=== PATIENT | male | born 1960 ===

== ENCOUNTER 2016-12-29 02:07 | Emergency (ER) | payer BC, MEDICAID ==
[2016-12-29] MEDS ORDERED: Sodium Chloride 0.9% 1,000 ML IV STA (03:13)
--- NOTE | 2016-12-29 03:16 | ED PDOC ---
Lower Extremity Pain/Injury Time Seen by Provider: 12/29/16 02:35 Chief Complaint (Nursing): Lower Extremity Problem/Injury Chief Complaint (Provider): left great toe eval History Per: Patient History/Exam Limitations: no limitations Onset/Duration Of Symptoms: Days (3) Current Symptoms Are (Timing): Still Present Additional History Per: Patient Additional Complaint(s): 56 y/o male history of diabetes (noncompliant with insulin) presents with discoloration to tip of left great toe x 3 days. Denies fever, nausea/vomiting , known trauma to foot, numbness/weakness left lower extremity, limitation of movement. Past Medical History Reviewed: Historical Data, Nursing Documentation, Vital Signs - Medical History PMH: Diabetes Denies: Chronic Kidney Disease - Family History Family History: States: Diabetes - Home Medications Home Medications: Ambulatory Orders Medication Instructions Recorded Amoxicillin/Clavulanate [Augmentin 1 tab PO BID #20 tab 11/24/15 875 MG-125 MG] Clindamycin [Cleocin] 300 mg PO QID #40 cap 01/28/16 Naproxen 500 mg PO BID PRN #20 tab 01/28/16 - Allergies Allergies/Adverse Reactions: Allergies Allergy/AdvReac Type Severity Reaction Status Date / Time No Known Allergies Allergy Verified 11/24/15 06:27 Review of Systems ROS Statement: Except As Marked, All Systems Reviewed And Found Negative Skin: Positive for: Other (discoloration left great toe) Physical Exam - Reviewed Nursing Documentation Reviewed: Yes Vital Signs Reviewed: Yes - Physical Exam Appears: Positive for: Well, Non-toxic, No Acute Distress Cardiovascular/Chest: Positive for: Regular Rate, Rhythm Respiratory: Positive for: Normal Breath Sounds Pulses-Dorsalis Pedis (L): 2+ Pulses-Dorsalis Pedis (R): 2+ Pulses-Post. Tibialis (L): 2+ Pulses-Post. Tibialis (R): 2+ Extremity: Positive for: Normal ROM, Other (blackened discoloration noted distal left great toe, exending to plantar surface. Nontender. FROM. Brittle/ fungal nails) Neurologic/Psych: Positive for: Alert, Oriented. Negative for: Motor/Sensory Deficits - Laboratory Results Result Diagrams: 12/29/16 03:42 12/29/16 03:42 - Other Rad xray left foot X-Ray: Viewed By Me X-Ray Interpretation: no acute findings - Progress ED Course And Treament: xray, labs, IV fluids, podiatry consult Patient evaluated by POdiatry resident on-call; foot cleaned, bandaged. Advised follow up in clinic. Return to ED for worsening/concerning symptoms. Disposition - Clinical Impression Clinical Impression: Toe contusion, Hyperglycemia - Patient ED Disposition Is Patient to be Admitted: No - Disposition Referrals: Davon Jose MD [Primary Care Provider] - Podiatry Clinic [Outside] [facility] [Outside] Disposition: Routine/Home Disposition Time: 05:58 Condition: GOOD Instructions: Contusion in Adults (ED), Diabetic Hyperglycemia (ED) Print Language: AMHARIC
[2016-12-29 03:47] LABS: BASO % 0.7 % (0.0-2.0); EOS # 0.1 K/uL (0.0-0.7); HEMOGLOBIN 13.7 g/dL (12.0-18.0); LYMPH # 1.9 K/uL (1.0-4.3); LYMPH % 40.2 % (20.0-40.0); MEAN CELL VOLUME 92.5 fl (80.0-94.0); MEAN CORPUSCULAR HGB CONC 33.5 g/dL (33.0-37.0); MEAN PLATELET VOLUME 8.8 fl (7.2-11.7); MONO # 0.5 K/uL (0.0-0.8); MONO % 10.3 % (0.0-10.0); NEUT # 2.1 K/uL (1.8-7.0); NEUT % 45.8 % (50.0-75.0); NRBC % 0.2 % (0.0-0.0); RBC 4.43 Mil/uL (4.40-5.90); RED CELL DISTRIBUTION WIDTH 12.6 % (11.5-14.5); WHITE BLOOD COUNT 4.6 K/uL (4.8-10.8)
[2016-12-29 03:54] LABS: ALB/GLOB RATIO 1.3 (1.0-2.1); ALBUMIN 3.8 g/dL (3.5-5.0); ALT/SGPT 45 U/L (21-72); AST/SGOT 18 U/L (17-59); BLOOD UREA NITROGEN 15 mg/dl (9-20); CALCIUM 8.6 mg/dL (8.4-10.2); GFR AFRICAN-AMERICAN > 60; GFR NON-AFRICAN AMERICAN > 60
[2016-12-29 06:29] VITALS: BP 106/58; PULSE 79; RESP 118; TEMP 98; O2SAT 99
--- NOTE | 2016-12-29 11:10 | CP.PCM.CON ---
History of Present Illness - History of Present Illness History of Present Illness: Patient is a 56 y.o male with h/o of DM presents to the ED for left distal hallux discoloration. Patient states he has noticed the discolored toe for the last few days. The color has not gotten better. He understands having diabetes and foot issues are dangerous so he came here today for an examination. He reports no pain but states his toe feels stiff. He does not recall any trauma. He also states that he has been feeling depressed lately because of being unemployed so he may have a trama to the foot and not recall. He states he has problems recalling information. He denies n/v/sob/cp/chills or fever. PMH: DM Allergies: crabs (itch) SH: past smoker 3 pack/week for 10 years Review of Systems - Constitutional Constitutional: As Per HPI - Integumentary Integumentary: As Per HPI Past Patient History - Infectious Disease Hx of Infectious Diseases: None - Past Social History Smoking Status: Former Smoker - CARDIAC Hx Cardiac Disorders: No - PULMONARY Hx Respiratory Disorders: No - NEUROLOGICAL Hx Neurological Disorder: No - HEENT Hx HEENT Problems: Yes Hx Cataracts: Yes - RENAL Hx Chronic Kidney Disease: No - ENDOCRINE/METABOLIC Hx Endocrine Disorders: Yes Hx Diabetes Mellitus Type 2: Yes - HEMATOLOGICAL/ONCOLOGICAL Hx Blood Disorders: No - INTEGUMENTARY Hx Dermatological Problems: No - MUSCULOSKELETAL/RHEUMATOLOGICAL Hx Musculoskeletal Disorders: No - GASTROINTESTINAL Hx Gastrointestinal Disorders: No - GENITOURINARY/GYNECOLOGICAL Hx Genitourinary Disorders: No - PSYCHIATRIC Hx Psychophysiologic Disorder: No Hx Substance Use: No - SURGICAL HISTORY Hx Surgeries: Yes Hx Cataract Extraction: Yes Hx Herniorrhaphy: Yes Other/Comment: Brain surgery - ANESTHESIA Hx Anesthesia: Yes Hx Anesthesia Reactions: No Meds Allergies/Adverse Reactions: Allergies Allergy/AdvReac Type Severity Reaction Status Date / Time No Known Allergies Allergy Verified 11/24/15 06:27 Physical Exam - Constitutional Appears: Well, Non-toxic, No Acute Distress - Extremities Exam Additional comments: Vasc: DP and PT 2/4 bilaterally, temperature gradient WNL, [employer] <3 seconds to digits x10, no edema noted Ortho: MM is 5/5 in all four compartments bilaterally, no pain elicited upon palpation of the distal left hallux Neuro: gross sensation diminished bilaterally Derm: Left foot distal hallux with old dried hemorrhagic blister with overlying hyperkeratotic skin. No open lesions noted, no signs of infection, no erythema or fluctance noted - Neurological Exam Neurological exam: Alert, Oriented x3 - Psychiatric Exam Psychiatric exam: Normal Affect, Normal Mood Results - Vital Signs Recent Vital Signs: Last Vital Signs Temp 98 F 12/29/16 06:28 Pulse 79 12/29/16 06:28 Resp 118 H 12/29/16 06:28 BP 106/58 L 12/29/16 06:28 Pulse Ox 99 12/29/16 06:28 - Labs Result Diagrams: 12/29/16 03:42 12/29/16 03:42 Labs: Laboratory Results - last 24 hr 12/29/16 12/29/16 12/29/16 03:42 03:42 03:42 WBC 4.6 L RBC 4.43 Hgb 13.7 Hct 41.0 MCV 92.5 MCH 31.0 MCHC 33.5 RDW 12.6 Plt Count 165 MPV 8.8 Neut % (Auto) 45.8 L Lymph % (Auto) 40.2 H Russell % (Auto) 10.3 H Eos % (Auto) 3.0 Baso % (Auto) 0.7 Neut # 2.1 Lymph # 1.9 Russell # 0.5 Eos # 0.1 Baso # 0.0 Sodium 136 Potassium 3.9 Chloride 106 Carbon Dioxide 20 L Anion Gap 14 BUN 15 Creatinine 0.7 L Est GFR ( Amer) > 60 Est GFR (Non-Af Amer) > 60 Random Glucose 316 H Lactic Acid 1.1 Calcium 8.6 Total Bilirubin 1.0 AST 18 ALT 45 Alkaline Phosphatase 77 Total Protein 6.7 Albumin 3.8 Globulin 2.9 Albumin/Globulin Ratio 1.3 Assessment & Plan - Assessment and Plan (Free Text) Assessment: 56 y.o male presents to ED with left distal hallux hyperkeratotic hemorrhagic abrasion Plan: Patient was examined and evaluated Plan discussed with attending Dr. Rinku Green and chart reviewed X-ray reviewed with no soft tissue emphysma noted or fracture noted Left distal hallux cleansed with betadine and dressed with 4x4 and cling Will f/u in podiatry clinic in 1 week Thank you for the consult
--- NOTE | 2016-12-29 14:14 | RAD ---
PROCEDURE: Radiographs of the left great toe. TECHNIQUE:: AP radiograph of the left foot, with oblique and lateral view of the left great toe. COMPARISON: None. FINDINGS: BONES: Normal. No fracture. JOINTS: Normal. SOFT TISSUES: Normal. OTHER FINDINGS: None. IMPRESSION: No acute findings related to/accounting for the clinical presentation. No preliminary report provided by emergency department personnel.
== END 2016-12-29 06:41 | disposition home or self-care (01) ==
LOC: H.ER 02:07
DX: L85.1 Acquired keratosis [keratoderma] palmaris et plantaris (principal); E11.65 Type 2 diabetes mellitus with hyperglycemia; Z91.19 Patient's noncompliance with other medical treatment and regimen

== ENCOUNTER 2017-06-14 17:45 | Emergency (ER) | payer MEDICAID ==
[2017-06-14] MEDS ORDERED: Sodium Chloride 0.9% 1,000 ML IV STA (18:21)
--- NOTE | 2017-06-14 18:34 | ED PDOC ---
HPI: Abdomen Time Seen by Provider: 06/14/17 18:10 Chief Complaint (Nursing): Male Genitourinary Chief Complaint (Provider): Abdominal Pain History Per: Patient History/Exam Limitations: no limitations Onset/Duration Of Symptoms: Days (x 6) Current Symptoms Are (Timing): Still Present Associated Symptoms: Back Pain, Urinary Symptoms Additional Complaint(s): 56 year old male presents to the emergency department complaining of abdominal pain, ongoing for 6 days and worsening since onset. Initially pain was associated with watery non-bloody diarrhea, which resolved 2 days ago. Now hes having dysuria and urinary frequency with dark-colored urine. Patient reports fever, chills, and bilateral low back pain. He has a decreased appetite but no nausea or vomiting. Patient came today because it was the soonest he could get off work. He has taken ibuprofen, Tylenol, and a dose of penicillin he found at home with no relief. No known sick contacts or recent travel. No recent antibiotics prior to onset of symptoms. PMD: Dr. Davon Jose Past Medical History Reviewed: Historical Data, Nursing Documentation, Vital Signs Vital Signs: Last Vital Signs Temp 98.6 F 06/14/17 18:02 Pulse 84 06/14/17 20:36 Resp 14 06/14/17 20:36 BP 147/82 06/14/17 20:36 Pulse Ox 98 06/14/17 20:36 - Medical History PMH: Diabetes Denies: Chronic Kidney Disease - Surgical History Other surgeries: Left testicular mass removal, carotid endovascular surgery, cataract surgery - Family History Family History: States: Diabetes - Social History Ex-Smoker (has not smoked in the last 12 months): Yes (cigars occasionally) Alcohol: None Drugs: Denies - Home Medications Home Medications: Ambulatory Orders Medication Instructions Recorded Amoxicillin/Clavulanate [Augmentin 1 tab PO BID #20 tab 11/24/15 875 MG-125 MG] Clindamycin [Cleocin] 300 mg PO QID #40 cap 01/28/16 Naproxen 500 mg PO BID PRN #20 tab 01/28/16 Ciprofloxacin [Cipro] 1 tab PO BID #14 tab 06/14/17 - Allergies Allergies/Adverse Reactions: Allergies Allergy/AdvReac Type Severity Reaction Status Date / Time No Known Allergies Allergy Verified 06/14/17 18:02 Review of Systems ROS Statement: Except As Marked, All Systems Reviewed And Found Negative (As per HPI, otherwise negative) Constitutional: Positive for: Fever, Chills Gastrointestinal: Positive for: Abdominal Pain. Negative for: Nausea, Vomiting , Diarrhea (resolved 2 days ago) Genitourinary Male: Positive for: Dysuria, Frequency, Other (dark urine) Musculoskeletal: Positive for: Back Pain (b/l lower) Physical Exam - Reviewed Nursing Documentation Reviewed: Yes Vital Signs Reviewed: Yes - Physical Exam Appears: Positive for: Non-toxic, No Acute Distress (but tired appearing) Head Exam: Positive for: ATRAUMATIC, NORMOCEPHALIC Skin: Positive for: Warm, Dry Eye Exam: Positive for: EOMI, PERRL ENT: Positive for: Pharynx Is (clear with tacky mucus membranes) Neck: Positive for: Supple, Trachea Midline Cardiovascular/Chest: Positive for: Regular Rate, Rhythm. Negative for: Murmur Respiratory: Positive for: Normal Breath Sounds. Negative for: Respiratory Distress Gastrointestinal/Abdominal: Positive for: Bowel Sounds, Soft, Tenderness ( suprapubic and LLQ). Negative for: Mass, Distended, Guarding, Rebound Back: Positive for: Other (mild bilateral lumbar paraspinal ttp). Negative for : L CVA Tenderness, R CVA Tenderness, Vertebral Tenderness Extremity: Positive for: Normal ROM. Negative for: Deformity Lymphatic: Negative for: Adenopathy Neurologic/Psych: Positive for: Alert. Negative for: Motor/Sensory Deficits - Laboratory Results Result Diagrams: 06/14/17 18:56 06/14/17 18:56 Urine dip results: Positive for: Leukocyte Esterase, Blood, Nitrate, Ketones, Glucose - ECG O2 Sat by Pulse Oximetry: 99 (RA) Pulse Ox Interpretation: Normal Medical Decision Making Medical Decision Making: Initial Impression: Abdominal pain, Urinary symptoms Differential includes but is not limited to: UTI, cystitis, pyelonephritis, gastroenteritis, dehydration Time: 18:20 Initial Plan: * Labs * Urine dipstick * Blood and urine cultures * Urinalysis * Accucheck * IV fluids * Reevaluation Accession No. : [id number] Patient Name / ID : CHRISTINE CASTREJON / [id number] Exam Date : 06/14/2017 19:38:45 ( Approved ) Study Comment : Sex / Age : M / 56Y Creator : KORSVIK-ANGE, DANIELA Dictator : Paint Tinter : It Applications Manager : DANIELA ESPINAL Approver2 : Report Date : 06/14/2017 20:12:00 My Comment : [facility] Division of Radiology [address] [address] Tel. no. Patient Name: LUCÍA KING Pt. Address: [address] [place] [address]. Rec #: [id number] [place] [address]: Yong REECE, Liliane Bashir Pt CELL Order Location: [facility] : 1960 Male Age: 56 Order #: [id number] Reason for exam: flank pain and UTi symptoms CT Scan ABD PELVIS W/O PO OR IV CONT Exam Date: 06/14/17 This imaging exam was performed at [facility] EXAM: CT Abdomen and Pelvis Without Intravenous Contrast EXAM DATE/TIME: 06/14/2017 7:30 PM CLINICAL HISTORY: 56 years old, male; Pain; Abdominal pain; Generalized; Additional info: Flank pain and uti symptoms TECHNIQUE: Axial computed tomography images of the abdomen and pelvis without intravenous contrast. All CT scans at this facility use one or more dose reduction techniques, viz.: automated exposure control; ma/kV adjustment per patient size (including targeted exams where dose is matched to indication; i.e. head); or iterative reconstruction technique. Coronal and sagittal reformatted images were created and reviewed. COMPARISON: There are no prior studies for comparison. FINDINGS: Lower thorax: Heart size is normal. There is a small hilar hernia. There is dependent atelectasis. ABDOMEN: Liver: unremarkable Gallbladder and bile ducts: unremarkable Pancreas: unremarkable Spleen: Spleen is mildly enlarged. Adrenals: unremarkable Kidneys and ureters: There is mild left perinephric stranding. There are no renal or ureteral stones.There is no pelvocaliectasis or ureterectasis. Stomach and bowel: Stomach is partially distended with ingested material. Rotation is normal. Proximal small bowel is mildly distended. Distention decreases distally. There is no obstruction. Ileocecal region is unremarkable. Appendix and terminal ileum are unremarkable. There is moderate stool in the colon. Appendix: See stomach and bowel PELVIS: Bladder: Bladder is distended. Reproductive: Prostate is mildly enlarged. Seminal vesicles are unremarkable. ABDOMEN and PELVIS: Intraperitoneal space: There is no free air or free fluid. Bones/joints: There are degenerative changes in the osseus structures. Soft tissues: There is a small fat containing umbilical hernia. 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 There is minimal vascular calcification in the aorta. Lymph nodes: There is no pathologic adenopathy. IMPRESSION: No renal or ureteral stones or hydronephrosis; mild splenomegaly Additional findings as described above. Dictated By: Daniela Espinal MD, MD Dictated Date/Time: 06/14/172011 Signed By: Daniela Espinal MD Date Signed: 2011 Transcribed By: SHAWNA Transcribe Date/Time : 06/14/172011 RANDY/[facility]CO [facility] pt findings and plan of care. Dose of Cipro in ER and stable for dc with urgent follow up. Scribe Attestation: Documented by Jazlyn Gillis, acting as a scribe for Liliane Beach MD Provider Scribe Attestation: All medical record entries made by the Scribe were at my direction and personally dictated by me. I have reviewed the chart and agree that the record accurately reflects my personal performance of the history, physical exam, medical decision making, and the department course for this patient. I have also personally directed, reviewed, and agree with the discharge instructions and disposition. Disposition - Clinical Impression Clinical Impression: Cystitis, Hyperglycemia Counseled Patient/Family Regarding: Studies Performed, Diagnosis, Need For Followup, Rx Given - Disposition Referrals: Davon Jose MD [Family Provider] - 06/15/17 (FOLLOW UP WITH DR JOSE TOMORROW ) Disposition: Routine/Home Disposition Time: 21:00 Condition: IMPROVED Prescriptions: Ciprofloxacin [Cipro] 1 tab PO BID #14 tab Instructions: Urinary Tract Infection in Men (ED), Diabetic Hyperglycemia (ED) Forms: [facility] School/Work Excuse Print Language: JAPANESE
[2017-06-14 19:09] LABS: BASO % 0.4 % (0.0-2.0); EOS # 0.1 K/uL (0.0-0.7); EOS % 1.4 % (0.0-4.0); HEMOGLOBIN 12.5 g/dL (12.0-18.0); LYMPH # 1.3 K/uL (1.0-4.3); LYMPH % 16.1 % (20.0-40.0); MEAN CELL VOLUME 91.7 fl (80.0-94.0); MEAN CORPUSCULAR HEMOGLOBIN 31.4 pg (27.0-31.0); MEAN CORPUSCULAR HGB CONC 34.3 g/dL (33.0-37.0); MEAN PLATELET VOLUME 8.3 fl (7.2-11.7); MONO # 0.7 K/uL (0.0-0.8); MONO % 8.4 % (0.0-10.0); NEUT # 6.1 K/uL (1.8-7.0); NEUT % 73.7 % (50.0-75.0); NRBC % 0.1 % (0.0-0.0); RBC 3.98 Mil/uL (4.40-5.90); RED CELL DISTRIBUTION WIDTH 12.3 % (11.5-14.5); WHITE BLOOD COUNT 8.2 K/uL (4.8-10.8)
[2017-06-14 19:10] LABS: VENOUS BLOOD GAS BASE EXCESS -1.1 mmol/L (0.0-2.0); VENOUS BLOOD GAS PCO2 38 mmHg (40-60); VENOUS BLOOD GAS PO2 50 mm/Hg (30-55)
[2017-06-14 19:13] LABS: SQUAMOUS EPITHIAL < 1 /hpf (0-5); URINE BILIRUBIN NEGATIVE (NEGATIVE); URINE BLOOD MODERATE (NEGATIVE); URINE CLARITY SLIGHTY-CLOUDY (Clear); URINE COLOR YELLOW (YELLOW); URINE GLUCOSE (UA) >=500 mg/dL (Normal); URINE LEUKOCYTE ESTERASE SMALL Leu/uL (Negative); URINE NITRATE NEGATIVE (NEGATIVE); URINE PROTEIN NEGATIVE (NEGATIVE)
[2017-06-14 19:29] LABS: ALB/GLOB RATIO 1.1 (1.0-2.1); ALBUMIN 3.6 g/dL (3.5-5.0); ALT/SGPT 50 U/L (21-72); AST/SGOT 23 U/L (17-59); BLOOD UREA NITROGEN 16 mg/dl (9-20); CALCIUM 8.7 mg/dL (8.4-10.2); GFR AFRICAN-AMERICAN > 60; GFR NON-AFRICAN AMERICAN > 60; LIPASE 59 U/L (23-300); MAGNESIUM 2.1 MG/DL (1.6-2.3)
[2017-06-14] MEDS ORDERED: Ciprofloxacin 400mg/200ml D5W 400 MG/200 ML BAG IV STA (19:30)
--- NOTE | 2017-06-14 20:12 | CT ---
EXAM: CT Abdomen and Pelvis Without Intravenous Contrast EXAM DATE/TIME: 06/14/2017 7:30 PM CLINICAL HISTORY: 56 years old, male; Pain; Abdominal pain; Generalized; Additional info: Flank pain and uti symptoms TECHNIQUE: Axial computed tomography images of the abdomen and pelvis without intravenous contrast. All CT scans at this facility use one or more dose reduction techniques, viz.: automated exposure control; ma/kV adjustment per patient size (including targeted exams where dose is matched to indication; i.e. head); or iterative reconstruction technique. Coronal and sagittal reformatted images were created and reviewed. COMPARISON: There are no prior studies for comparison. FINDINGS: Lower thorax: Heart size is normal. There is a small hilar hernia. There is dependent atelectasis. ABDOMEN: Liver: unremarkable Gallbladder and bile ducts: unremarkable Pancreas: unremarkable Spleen: Spleen is mildly enlarged. Adrenals: unremarkable Kidneys and ureters: There is mild left perinephric stranding. There are no renal or ureteral stones.There is no pelvocaliectasis or ureterectasis. Stomach and bowel: Stomach is partially distended with ingested material. Rotation is normal. Proximal small bowel is mildly distended. Distention decreases distally. There is no obstruction. Ileocecal region is unremarkable. Appendix and terminal ileum are unremarkable. There is moderate stool in the colon. Appendix: See stomach and bowel PELVIS: Bladder: Bladder is distended. Reproductive: Prostate is mildly enlarged. Seminal vesicles are unremarkable. ABDOMEN and PELVIS: Intraperitoneal space: There is no free air or free fluid. Bones/joints: There are degenerative changes in the osseus structures. Soft tissues: There is a small fat containing umbilical hernia. 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 There is minimal vascular calcification in the aorta. Lymph nodes: There is no pathologic adenopathy. IMPRESSION: No renal or ureteral stones or hydronephrosis; mild splenomegaly Additional findings as described above.
[2017-06-14] MEDS ORDERED: Ciprofloxacin 400mg/200ml D5W 400 MG/200 ML BAG IVPB ONE (20:20)
[2017-06-14 20:36] VITALS: PULSE 84; RESP 14
[2017-06-14] MEDS ORDERED: Insulin Regular 100 units/ml SC STA ×2 (20:39→20:43)
[2017-06-14] MEDS ORDERED: Insulin Regular 100 units/ml ONE (20:45)
[2017-06-14 21:24] VITALS: O2SAT 99
[2017-06-14 21:43] VITALS: BP 118/67; TEMP 98.9
== END 2017-06-14 22:31 | disposition home or self-care (01) ==
LOC: H.ER 17:45
DX: N30.90 Cystitis, unspecified without hematuria (principal); E11.65 Type 2 diabetes mellitus with hyperglycemia
CPT/HCPCS: 74176; 80053; 81003; 82803; 82948; 83690; 83735; 84100; 85025; 87040; 87086; 96372; 96374; 99285; J0744; J1885; J7040

== ENCOUNTER 2017-08-29 23:10 | Emergency (ER) | payer MEDICAID ==
[2017-08-29 23:18] VITALS: BP 149/79; PULSE 79; RESP 18; TEMP 97.8; O2SAT 98
[2017-08-30 00:37] LABS: BASO # 0.1 K/uL (0.0-0.2); BASO % 0.9 % (0.0-2.0); EOS # 0.2 K/uL (0.0-0.7); EOS % 3.4 % (0.0-4.0); HEMOGLOBIN 12.8 g/dL (12.0-18.0); LYMPH # 1.7 K/uL (1.0-4.3); LYMPH % 29.5 % (20.0-40.0); MEAN CELL VOLUME 89.5 fl (80.0-94.0); MEAN CORPUSCULAR HEMOGLOBIN 30.6 pg (27.0-31.0); MEAN CORPUSCULAR HGB CONC 34.2 g/dL (33.0-37.0); MEAN PLATELET VOLUME 8.3 fl (7.2-11.7); MONO # 0.5 K/uL (0.0-0.8); MONO % 7.9 % (0.0-10.0); NEUT # 3.4 K/uL (1.8-7.0); NEUT % 58.3 % (50.0-75.0); RBC 4.18 Mil/uL (4.40-5.90); RED CELL DISTRIBUTION WIDTH 12.9 % (11.5-14.5); WHITE BLOOD COUNT 5.8 K/uL (4.8-10.8)
[2017-08-30 00:46] LABS: ALBUMIN 3.6 g/dL (3.5-5.0); ALT/SGPT 29 U/L (21-72); AST/SGOT 18 U/L (17-59); BLOOD UREA NITROGEN 12 mg/dl (9-20); GFR AFRICAN-AMERICAN > 60; GFR NON-AFRICAN AMERICAN > 60
[2017-08-30] MEDS ORDERED: Sodium Chloride 0.9% 1,000 ML IV STA (01:11)
[2017-08-30] MEDS ORDERED: Insulin Regular 100 units/ml IV STA (01:11)
[2017-08-30] MEDS ORDERED: Insulin Regular 100 units/ml ONE (01:19)
--- NOTE | 2017-08-30 01:29 | ED PDOC ---
Lower Extremity Pain/Injury Time Seen by Provider: 08/29/17 23:23 Chief Complaint (Nursing): Lower Extremity Problem/Injury Chief Complaint (Provider): Left foot pain and swelling - No trauma History Per: Patient History/Exam Limitations: no limitations Onset/Duration Of Symptoms: Days (3) Current Symptoms Are (Timing): Still Present Severity: Moderate Additional Complaint(s): 57 yo male with history of DM presents with left foot pain for 3 days. Pt denies trauma but states he has been on his feet a lot at work. No calf pain. No SOB. Recent A1C > 11 Past Medical History Reviewed: Historical Data, Nursing Documentation, Vital Signs Vital Signs: Last Vital Signs Temp 97.8 F 08/29/17 23:12 Pulse 79 08/29/17 23:12 Resp 18 08/29/17 23:12 BP 149/79 08/29/17 23:12 Pulse Ox 98 08/29/17 23:12 - Medical History PMH: Diabetes Denies: Chronic Kidney Disease - Surgical History Surgical History: No Surg Hx - Family History Family History: States: Diabetes - Living Arrangements Living Arrangements: With Family - Social History Current smoker - smoking cessation education provided: No Alcohol: Occasional Drugs: Denies - Home Medications Home Medications: Ambulatory Orders Medication Instructions Recorded Amoxicillin/Clavulanate [Augmentin 1 tab PO BID #20 tab 11/24/15 875 MG-125 MG] Clindamycin [Cleocin] 300 mg PO QID #40 cap 01/28/16 Naproxen 500 mg PO BID PRN #20 tab 01/28/16 Ciprofloxacin [Cipro] 1 tab PO BID #14 tab 06/14/17 Naproxen [Naprosyn] 500 mg PO BID PRN #20 tablet 08/30/17 - Allergies Allergies/Adverse Reactions: Allergies Allergy/AdvReac Type Severity Reaction Status Date / Time No Known Allergies Allergy Verified 06/14/17 18:02 Review of Systems ROS Statement: Except As Marked, All Systems Reviewed And Found Negative Constitutional: Negative for: Fever, Chills Musculoskeletal: Positive for: Foot Pain Physical Exam - Reviewed Nursing Documentation Reviewed: Yes Vital Signs Reviewed: Yes - Physical Exam Appears: Positive for: Well, Non-toxic, No Acute Distress Head Exam: Positive for: ATRAUMATIC, NORMAL INSPECTION, NORMOCEPHALIC Skin: Positive for: Normal Color (No erythema of the feet, no rash, no abrasions ), Warm Eye Exam: Positive for: Normal appearance ENT: Positive for: Normal ENT Inspection Neck: Positive for: Normal, Painless ROM Respiratory: Negative for: Accessory Muscle Use Pulses-Dorsalis Pedis (L): 2+ Pulses-Dorsalis Pedis (R): 2+ Pulses-Post. Tibialis (L): 2+ Pulses-Post. Tibialis (R): 2+ Back: Positive for: Normal Inspection Extremity: Positive for: Normal ROM, Swelling, Other ((+) tenderness of the plantar fascia on the left foot ). Negative for: Calf Tenderness Neurologic/Psych: Positive for: Alert, Oriented - Laboratory Results Result Diagrams: 08/30/17 00:34 08/30/17 00:34 - ECG O2 Sat by Pulse Oximetry: 98 Pulse Ox Interpretation: Normal Disposition - Clinical Impression Clinical Impression: Plantar fasciitis of left foot - Patient ED Disposition Is Patient to be Admitted: No Counseled Patient/Family Regarding: Diagnosis, Need For Followup, Rx Given - Disposition Referrals: Podiatry Clinic [Outside] Disposition: Routine/Home Disposition Time: 02:46 Condition: GOOD Prescriptions: Naproxen [Naprosyn] 500 mg PO BID PRN #20 tablet PRN Reason: Pain Instructions: Plantar Fasciitis Exercises, Heel Pain (Caused by Plantar Fasciitis) (DC) Forms: [facility] (Chilean)
[2017-08-30 01:52] LABS: URINE BACTERIA RARE (<OCC); URINE BILIRUBIN NEGATIVE (NEGATIVE); URINE BLOOD NEGATIVE (NEGATIVE); URINE CLARITY CLEAR (Clear); URINE COLOR STRAW (YELLOW); URINE GLUCOSE (UA) >=500 mg/dL (Normal); URINE LEUKOCYTE ESTERASE NEG Leu/uL (Negative); URINE PROTEIN NEGATIVE (NEGATIVE); URINE UROBILINOGEN 0.2-1.0 mg/dL (0.2-1.0)
--- NOTE | 2017-08-30 08:30 | RAD ---
PROCEDURE: Left Foot Radiographs. HISTORY: Left foot swelling COMPARISON: Left great toe radiographs 12/29/2016. FINDINGS: BONES: Normal fracture or destructive bony lesion appreciated. Note is made of diffuse osteopenia suggesting osteoporosis. JOINTS: Degenerative joint space narrowing and cortical sclerosis appreciated throughout the joints of the forefoot midfoot and hindfoot compatible degenerative joint disease. SOFT TISSUES: Normal. OTHER FINDINGS: None. IMPRESSION: No acute fracture or dislocation. Diffuse osteopenia suggests osteoporosis. Diffuse degenerative joint disease.
== END 2017-08-30 03:07 | disposition home or self-care (01) ==
LOC: H.ER 23:10
DX: M72.2 Plantar fascial fibromatosis (principal); E11.9 Type 2 diabetes mellitus without complications
CPT/HCPCS: 73630; 80053; 81003; 82948; 85025; 85378; 96360; 99284; J7040

== ENCOUNTER 2018-04-27 23:01 | Emergency (ER) | payer BC, MEDICAID ==
[2018-04-27 23:19] VITALS: BP 143/76; PULSE 75; RESP 17; TEMP 98.3; O2SAT 99
--- NOTE | 2018-04-28 00:17 | ED PDOC ---
Lower Extremity Pain/Injury Time Seen by Provider: 04/27/18 23:29 Chief Complaint (Nursing): Lower Extremity Problem/Injury Chief Complaint (Provider): Lower Extremity Problem/Injury History Per: Patient History/Exam Limitations: no limitations Onset/Duration Of Symptoms: Days (x2 weeks) Current Symptoms Are (Timing): Still Present Additional Complaint(s): Lucía Benjamin is a 57 year old male with a past medical history of diabetes, who presents to the emergency department complaining of itching and swelling on his feet bilaterally, onset x2 weeks. Patient states he stands on his feet all the time at work for hours. He further reports that his glucometer is broken and he has not been able to check his blood sugar, however, he states he has been taking his medications, pills and insulin. Patient has seen his PMD for this in the past, who prescribed him a topical cream. 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 Patient states he changed his shoes and that his symptoms got better. He denies shortness of breath, chest pain, or any leg swelling. PMD: Dr. Bhat Past Medical History Reviewed: Historical Data, Nursing Documentation, Vital Signs Vital Signs: Last Vital Signs Temp 98.3 F 04/27/18 23:10 Pulse 75 04/27/18 23:10 Resp 17 04/27/18 23:10 BP 143/76 04/27/18 23:10 Pulse Ox 99 04/27/18 23:10 - Medical History PMH: Diabetes Denies: Chronic Kidney Disease - Surgical History Surgical History: No Surg Hx - Family History Family History: States: Diabetes - Home Medications Home Medications: Ambulatory Orders Medication Instructions Recorded Alogliptin Dale/Metformin HCl 1,000 mg PO DAILY 09/15/17 [Alogliptin-Metformin 12.5-1000] Ergocalciferol (Vitamin D2) 50,000 unit PO ASDIR 09/15/17 [Vitamin D2] Insulin Glargine,Hum.rec.anlog 60 unit SQ DAILY 09/15/17 [Basaglar Kwikpen U-100] - Allergies Allergies/Adverse Reactions: Allergies Allergy/AdvReac Type Severity Reaction Status Date / Time No Known Allergies Allergy Verified 06/14/17 18:02 Review of Systems ROS Statement: Except As Marked, All Systems Reviewed And Found Negative Musculoskeletal: Positive for: Foot Pain (itching and swelling bilaterally) Physical Exam - Reviewed Nursing Documentation Reviewed: Yes Vital Signs Reviewed: Yes - Physical Exam Appears: Positive for: Non-toxic, No Acute Distress (comfortable) Head Exam: Positive for: ATRAUMATIC, NORMOCEPHALIC Extremity: Negative for: Other (wounds, erythema, swelling on legs ) - ECG O2 Sat by Pulse Oximetry: 99 (RA) Pulse Ox Interpretation: Normal Medical Decision Making Medical Decision Making: Initial Time: 23:54 Initial Impression: Foot itching and foot swelling Initial Plan: --Glucose POC --Provider instructed patient to wear compression socks, comfortable shoes, get a new glucometer and be compliant with medications. --Patients accu-check was reported to be 150. Scribe Attestation: Documented by Doug Mata, acting as a scribe for Leesa Juarez MD Provider Scribe Attestation: All medical record entries made by the Scribe were at my direction and personally dictated by me. I have reviewed the chart and agree that the record accurately reflects my personal performance of the history, physical exam, medical decision making, and the department course for this patient. I have also personally directed, reviewed, and agree with the discharge instructions and disposition. Disposition - Clinical Impression Clinical Impression: Neuropathy of both feet Doctor Will See Patient In The: Office Counseled Patient/Family Regarding: Studies Performed, Diagnosis, Need For Followup - Disposition Referrals: Podiatry Clinic [Outside] Disposition: Routine/Home Disposition Time: 00:30 Condition: GOOD Additional Instructions: LUCÍA BENJAMIN, thank you for letting us take care of you today. Your provider was Leesa Juarez MD and you were treated for RT LEG PAIN. The emergency medical care you received today was directed at your acute symptoms. If you were prescribed any medication, please fill it and take as directed. It may take several days for your symptoms to resolve. Return to the Emergency Department if your symptoms worsen, do not improve, or if you have any other problems. Please contact your doctor or call one of the physicians/clinics you have been referred to that are listed on the Patient Visit Information form that is included in your discharge packet. Bring any paperwork you were given at discharge with you along with any medications you are taking to your follow up visit. Our treatment cannot replace ongoing medical care by a primary care provider outside of the emergency department. Thank you for allowing the [facility] team to be part of your care today. If you had an X-Ray or CT scan: A Radiologist will review the ED reading if any change in treatment is needed we will contact you. If you had a blood, urine, or wound culture: It will take several days for the results, if any change in treatment is needed we will contact you. If you had an STI test: It will take 48 hours for the results. Please call after 1 week if you have not heard back. Instructions: Diabetic Neuropathy
== END 2018-04-28 00:36 | disposition home or self-care (01) ==
LOC: H.ER 23:01
DX: G90.09 Other idiopathic peripheral autonomic neuropathy (principal); E11.40 Type 2 diabetes mellitus with diabetic neuropathy, unspecified; Z79.4 Long term (current) use of insulin

== ENCOUNTER 2018-06-22 23:11 | Emergency (ER) | payer BC, MEDICAID ==
[2018-06-22 23:23] VITALS: RESP 16
[2018-06-22] MEDS ORDERED: Sodium Chloride 0.9% 1,000 ML IV STA (23:54)
[2018-06-23 00:06] LABS: BASO # 0.1 K/uL (0.0-0.2); BASO % 0.9 % (0.0-2.0); EOS # 0.2 K/uL (0.0-0.7); EOS % 2.7 % (0.0-4.0); HEMOGLOBIN 13.5 g/dL (12.0-18.0); LYMPH # 1.7 K/uL (1.0-4.3); LYMPH % 24.2 % (20.0-40.0); MEAN CELL VOLUME 90.8 fl (80.0-94.0); MEAN CORPUSCULAR HEMOGLOBIN 31.1 pg (27.0-31.0); MEAN CORPUSCULAR HGB CONC 34.3 g/dL (33.0-37.0); MEAN PLATELET VOLUME 8.1 fl (7.2-11.7); MONO # 0.5 K/uL (0.0-0.8); MONO % 6.9 % (0.0-10.0); NEUT # 4.6 K/uL (1.8-7.0); NEUT % 65.3 % (50.0-75.0); RBC 4.34 Mil/uL (4.40-5.90); RED CELL DISTRIBUTION WIDTH 12.5 % (11.5-14.5)
[2018-06-23 00:11] LABS: ALB/GLOB RATIO 1.1 (1.0-2.1); ALT/SGPT 13 U/L (21-72); AST/SGOT 16 U/L (17-59); BLOOD UREA NITROGEN 14 mg/dl (9-20); GFR NON-AFRICAN AMERICAN > 60
--- NOTE | 2018-06-23 00:16 | ED PDOC ---
Lower Extremity Pain/Injury Time Seen by Provider: 06/22/18 23:27 Chief Complaint (Nursing): Lower Extremity Problem/Injury Chief Complaint (Provider): Lower Extremity Problem/Injury History Per: Patient History/Exam Limitations: no limitations Additional Complaint(s): 57 y/o male with PMHx of diabetes presents to the ED complaining of right foot pain and swelling onset x3 weeks ago. Patient reports x3 weeks of progressively worsening foot pain extending to his mid right lower extremity. Patient is seeing Dr. Marinelli, project coordinator, and Dr. Jose, PMD. He was given 1 course of antibiotics with no difference in symptoms. He had 1 outpatient x-ray at this facility; he additionally had a Doppler study a week ago and was told the results were normal. Past Medical History Reviewed: Historical Data, Nursing Documentation, Vital Signs Vital Signs: Last Vital Signs Temp 98.4 F 06/22/18 23:20 Pulse 79 06/22/18 23:20 Resp 16 06/22/18 23:20 BP 139/83 06/22/18 23:20 Pulse Ox 98 06/22/18 23:20 - Medical History PMH: Diabetes Denies: Chronic Kidney Disease - Surgical History Surgical History: No Surg Hx - Family History Family History: States: Diabetes - Social History Current smoker - smoking cessation education provided: No Alcohol: None Drugs: Denies - Immunization History Hx Tetanus Toxoid Vaccination: No Hx Influenza Vaccination: No Hx Pneumococcal Vaccination: No - Home Medications Home Medications: Ambulatory Orders Medication Instructions Recorded Cephalexin [Keflex] 500 mg PO Q6 #40 capsule 06/23/18 Insulin Glargine, Recombina 60 units SC DAILY 06/23/18 [Lantus] MetFORMIN [glucoPHAGE] 1,000 mg PO DAILY 06/23/18 - Allergies Allergies/Adverse Reactions: Allergies Allergy/AdvReac Type Severity Reaction Status Date / Time No Known Allergies Allergy Verified 06/22/18 23:20 Review of Systems ROS Statement: Except As Marked, All Systems Reviewed And Found Negative Musculoskeletal: Positive for: Leg Pain (right), Foot Pain (right) Physical Exam - Reviewed Nursing Documentation Reviewed: Yes Vital Signs Reviewed: Yes - Physical Exam Appears: Positive for: Well, Non-toxic, No Acute Distress Head Exam: Positive for: ATRAUMATIC, NORMOCEPHALIC Skin: Positive for: Normal Color, Warm, Dry Eye Exam: Positive for: Normal appearance, EOMI, PERRL Extremity: Positive for: Swelling (right foot extending to distal 1/3 of RLE is edematous), Other (warm to touch; mildly erythematous; no area of fluctuance; minimal induration) Neurologic/Psych: Positive for: Alert, Oriented. Negative for: Motor/Sensory Deficits - Laboratory Results Result Diagrams: 06/22/18 23:45 06/22/18 23:45 - ECG O2 Sat by Pulse Oximetry: 98 (RA) Pulse Ox Interpretation: Normal Medical Decision Making Medical Decision Making: Time: 23:27 Initial Impression: 57 y/o male with right lower extremity swelling in setting of known diabetes Initial Plan: * CMP * Lact Acid * Uric Acid * CBC w/ diff * ESR * Glucose * IV Fluids * Toradol 15 mg * Blood culture 01:05 Patient evaluated by project coordinator and is cleared for discharge. Patient will follow up with Dr. Marinelli. Diagnosis is cellulitis. Scribe Attestation: Documented by Sly Kirkpatrick acting as a scribe for Edy Molina MD. Provider Scribe Attestation: All medical record entries made by the Scribe were at my direction and personally dictated by me. I have reviewed the chart and agree that the record accurately reflects my personal performance of the history, physical exam, medical decision making, and the department course for this patient. I have also personally directed, reviewed, and agree with the discharge instructions and disposition. Disposition - Clinical Impression Clinical Impression: Cellulitis of foot - Patient ED Disposition Is Patient to be Admitted: No - Disposition Disposition: Routine/Home Disposition Time: 01:05 Condition: STABLE Additional Instructions: LUCÍA KING, thank you for letting us take care of you today. Your provider was Edy Molina MD and you were treated for FOOT SWELLING. The emergency medical care you received today was directed at your acute symptoms. If you were prescribed any medication, please fill it and take as directed. It may take several days for your symptoms to resolve. Return to the Emergency Department if your symptoms worsen, do not improve, or if you have any other problems. Please contact your doctor or call one of the physicians/clinics you have been referred to that are listed on the Patient Visit Information form that is includ ed in your discharge packet. Bring any paperwork you were given at discharge with you along with any medications you are taking to your follow up visit. Our treatment cannot replace ongoing medical care by a primary care provider outside of the emergency department. Thank you for allowing the [facility] team to be part of your care today. If you had an X-Ray or CT scan: A Radiologist will review the ED reading if any change in treatment is needed we will contact you. If you had a blood, urine, or wound culture: It will take several days for the results, if any change in treatment is needed we will contact you. If you had an STI test: It will take 48 hours for the results. Please call after 1 week if you have not heard back. Prescriptions: Cephalexin [Keflex] 500 mg PO Q6 #40 capsule Instructions: Cellulitis (Skin Infection), Adult (DC) Forms: [employer] (Swazi) Print Language: ROMANSH
[2018-06-23 00:29] LABS: URIC ACID 3.1 mg/Dl (3.5-8.5)
[2018-06-23] MEDS ORDERED: ceFAZolin 1 GM in Sodium Chloride 0.9% 100 ML IVPB STA (00:51)
[2018-06-23 03:09] VITALS: BP 127/79; PULSE 73; TEMP 98.1; O2SAT 99
--- NOTE | 2018-06-23 07:55 | CP.PCM.CON ---
History of Present Illness - History of Present Illness History of Present Illness: Podiatry consult note for Dr. Marinelli 57M with pmhx of DM seen and evaluated in the ED for right lower leg and foot pain which started 3 weeks ago. States that he visited Dr. Marinelli's office and was told to present to [facility] for x-rays and doppler studies, both of which were negative. States that the pain is not getting better and he notices his right leg is more swollen than his left. States that pain medication does help. Denies N/V/F/C/SOB/CP and has no other acute complaints. PMHx: DM SH: 3 ppw smoker All: NKDA Past Patient History - Infectious Disease Hx of Infectious Diseases: None - Past Medical History & Family History Past Medical History?: Yes - Past Social History Alcohol: None Drugs: Denies - CARDIAC Hx Cardiac Disorders: No Other/Comment: PT STATES HE HAD A CLOGGED ARTERY RIGHT ,HAD AN XRAY PROCEDURE, WENT IN THE RIGHT ARM 10 YEARS AGO, PT DOSE NOT KNOW THE NAME OF PROCEDURE, DEN IES BLOOD THINNERS OR ASA THERAPY. - PULMONARY Hx Respiratory Disorders: No - NEUROLOGICAL Hx Neurological Disorder: No - HEENT Hx HEENT Problems: Yes Hx Cataracts: Yes - RENAL Hx Chronic Kidney Disease: No - ENDOCRINE/METABOLIC Hx Endocrine Disorders: Yes Hx Diabetes Mellitus Type 2: Yes - HEMATOLOGICAL/ONCOLOGICAL Hx Blood Disorders: No - INTEGUMENTARY Hx Dermatological Problems: No - MUSCULOSKELETAL/RHEUMATOLOGICAL Hx Musculoskeletal Disorders: No - GASTROINTESTINAL Hx Gastrointestinal Disorders: No - GENITOURINARY/GYNECOLOGICAL Hx Genitourinary Disorders: No - PSYCHIATRIC Hx Psychophysiologic Disorder: No Hx Substance Use: No - SURGICAL HISTORY Hx Surgeries: Yes Hx Cataract Extraction: Yes - ANESTHESIA Hx Anesthesia: Yes Hx Anesthesia Reactions: No Hx Malignant Hyperthermia: No Meds Home Medications: Home Medication List Medication Instructions Recorded Confirmed Type Cephalexin [Keflex] 500 mg PO Q6 #40 capsule 06/23/18 Rx Allergies/Adverse Reactions: Allergies Allergy/AdvReac Type Severity Reaction Status Date / Time No Known Allergies Allergy Verified 06/22/18 23:20 Physical Exam - Constitutional Appears: Non-toxic, No Acute Distress - Head Exam Head Exam: ATRAUMATIC, NORMOCEPHALIC - Extremities Exam Additional comments: RLE focused: VASC: DP and PT pulses minimally palpable; cap refill <3 seconds to all digits; temp gradient warm to warm from proximal to distal; mild edema noted about the lower leg from the knee down to the distal digits DERM: no open lesions or wounds present; no rash present; mild erythema present globally about the lower leg ORTHO: no pain on palpation or ROM about the lower leg; no other gross pathology noted NEURO: gross and protective sensation intact - Neurological Exam Neurological exam: Alert, Oriented x3 - Psychiatric Exam Psychiatric exam: Normal Affect, Normal Mood Results - Vital Signs Recent Vital Signs: Last Vital Signs Temp 98.1 F 06/23/18 03:00 Pulse 73 06/23/18 03:00 Resp 16 06/23/18 03:00 BP 127/79 06/23/18 03:00 Pulse Ox 99 06/23/18 03:00 - Labs Result Diagrams: 06/22/18 23:45 06/22/18 23:45 Labs: Laboratory Results - last 24 hr 06/22/18 06/22/18 06/22/18 23:38 23:45 23:45 WBC 7.0 RBC 4.34 L Hgb 13.5 Hct 39.4 MCV 90.8 MCH 31.1 H MCHC 34.3 RDW 12.5 Plt Count 262 MPV 8.1 Neut % (Auto) 65.3 Lymph % (Auto) 24.2 Garfield % (Auto) 6.9 Eos % (Auto) 2.7 Baso % (Auto) 0.9 Neut # (Auto) 4.6 Lymph # (Auto) 1.7 Garfield # (Auto) 0.5 Eos # (Auto) 0.2 Baso # (Auto) 0.1 ESR 61 H Sodium 129 L Potassium 4.3 Chloride 97 L Carbon Dioxide 25 Anion Gap 11 BUN 14 Creatinine 0.8 Est GFR ( Amer) > 60 Est GFR (Non-Af Amer) > 60 POC Glucose (mg/dL) 342 H Random Glucose 368 H Lactic Acid Uric Acid 3.1 L Calcium 9.0 Total Bilirubin 0.6 AST 16 L ALT 13 L D Alkaline Phosphatase 124 Total Protein 7.5 Albumin 4.0 Globulin 3.5 Albumin/Globulin Ratio 1.1 06/22/18 06/23/18 23:45 01:15 WBC RBC Hgb Hct MCV MCH MCHC RDW Plt Count MPV Neut % (Auto) Lymph % (Auto) Garfield % (Auto) Eos % (Auto) Baso % (Auto) Neut # (Auto) Lymph # (Auto) Garfield # (Auto) Eos # (Auto) Baso # (Auto) ESR Sodium Potassium Chloride Carbon Dioxide Anion Gap BUN Creatinine Est GFR ( Amer) Est GFR (Non-Af Amer) POC Glucose (mg/dL) 266 H Random Glucose Lactic Acid 1.2 Uric Acid Calcium Total Bilirubin AST ALT Alkaline Phosphatase Total Protein Albumin Globulin Albumin/Globulin Ratio Assessment & Plan - Assessment and Plan (Free Text) Assessment: 57M with pmhx of DM seen and evaluated for right lower extremity swelling Plan: Patient seen and evaluated Discussed in detail with Dr. Marinelli Afebrile, absent leukocytosis, UA low, ESR normal Venous doppler - negative for DVT X-ray - no bony pathology, soft tissue inflammation seen 1 dose ancef given in the ED Rx ancef for 7 days and f/u with Dr. Marinelli in clinic Elevate and ice lower extremity, rest as much as possible Return to ED if symptoms persist or worsen Thank you for the consult - Date & Time Date: 06/23/18 Time: 02:15
== END 2018-06-23 03:15 | disposition home or self-care (01) ==
LOC: H.ER 23:11
DX: L03.115 Cellulitis of right lower limb (principal); E11.9 Type 2 diabetes mellitus without complications; Z79.4 Long term (current) use of insulin
CPT/HCPCS: 80053; 82948; 83605; 84550; 85025; 85651; 87040; 96361; 96365; 96375; 99284; J0690; J1885; J7030